=== PATIENT | female | born 1975 | race Caucasian/White ===

== ENCOUNTER 2016-11-16 18:34 | Emergency (ER) | payer OTHER ==
[2016-11-16 18:43] VITALS: BP 109/71; PULSE 68; TEMP 98; BMI 18.2
--- NOTE | 2016-11-16 20:04 | PDOC ---
History of Present Illness <Shekhar Judd - Last Filed: 11/16/16 20:04> - General History Source: Patient Exam Limitations: No Limitations - History of Present Illness Initial Comments: 11/16/16 20:20 The patient is a 40 year old female with past medical history of recent bilateral breast augmentation (11/03/16) who presents to the ED for bleeding from the surgical wound. Patient is s/p bilateral breast augmentation on November 03. States she had her procedure done in [place] with no complications. Patient reports last night was the first night she removed her surgical tapes and noted some blood oozing from the end of the right breast surgical wound. Denies swelling, bruising, or discharge from the area. She contacted her surgeon where she was told to come into the ER. Patient denies fever, chills, or diaphoresis. The patient denies cough, SOB, chest pain, and palpitations. The patient denies abdominal pain, nausea, vomiting, and diarrhea. Allergies: NKDA Social History: No alcohol, tobacco, or drug use reported. Past Surgical History: s/p bilateral; breast augmentation (11/03/16) PCP: Dr. Bobby Woods <Evangelina Jorge - Last Filed: 11/16/16 20:21> - General Chief Complaint: Wound Stated Complaint: FEMALE ISSUE Time Seen by Provider: 11/16/16 19:55 Past History - Psycho/Social/Smoking Cessation Hx Anxiety: No Suicidal Ideation: No Smoking History: Never smoked Have you smoked in the past 12 months: No Information on smoking cessation initiated: No Hx Alcohol Use: No Drug/Substance Use Hx: No Substance Use Type: None <Shekhar Judd - Last Filed: 11/16/16 20:04> <Evangelina Jorge - Last Filed: 11/16/16 20:21> - Past Medical History Allergies/Adverse Reactions: Allergies Allergy/AdvReac Type Severity Reaction Status Date / Time No Known Allergies Allergy Verified 11/16/16 18:40 Home Medications: Ambulatory Orders Phenazopyridine HCl [Pyridium -] 200 mg PO ONCE #10 tablet 04/03/14 Sulfamethoxazole/Trimethoprim [Bactrim *Ds*] 1 each PO BID #6 tablet 04/03/14 Review of Systems - Review of Systems Able to Perform ROS?: Yes Comments:: 11/16/16 20:21 CONSTITUTIONAL: Absent: fever, no chills, no fatigue EYES: Absent: visual changes ENT: Absent: ear pain, no sore throat CARDIOVASCULAR: Absent: chest pain, no palpitations RESPIRATORY: Absent: cough, no SOB GI: Absent: abdominal pain, no nausea, no vomiting, no constipation, no diarrhea GENITOURINARY: Absent: dysuria, no frequency, no hematuria MUSCULOSKELETAL: Absent: back pain, no arthralgia, no myalgia SKIN: +slight bleeding from the right breast surgical wound Absent: rash NEURO: Absent: headache <Evangelina Jorge - Last Filed: 11/16/16 20:21> *Physical Exam - Vital Signs Last Vital Signs Temp Pulse Resp BP Pulse Ox 98 F 68 18 109/71 100 11/16/16 18:40 11/16/16 18:40 11/16/16 18:40 11/16/16 18:40 11/16/16 18:40 <Shekhar Judd - Last Filed: 11/16/16 20:04> - Vital Signs Last Vital Signs Temp Pulse Resp BP Pulse Ox 98 F 68 18 109/71 100 11/16/16 18:40 11/16/16 18:40 11/16/16 18:40 11/16/16 18:40 11/16/16 18:40 - Physical Exam Comments: 11/16/16 20:21 GENERAL: Well-appearing, well-nourished. No apparent distress. HEENT: Normocephalic, atraumatic. PERRL, EOM intact. CARDIOVASCULAR: Normal S1, S2. Regular rate and rhythm. PULMONARY: Clear to auscultation bilaterally. ABDOMEN: Soft, non-distended, non-tender. EXTREMITIES: Normal ROM in all four extremities. No gross deformities. SKIN: Warm, dry. No rash. Well healing wound under right breast. Small area of ecchymosis. Wound is nontender. No active bleeding. NEUROLOGICAL: No focal neurological deficits. <Evangelina Jorge - Last Filed: 11/16/16 20:21> Medical Decision Making - Medical Decision Making 11/16/16 20:04 Dr. Judd: The scribe's documentation has been prepared under my direction and personally reviewed by me in its entirery. I confirm that the note above accurately reflects all work, treatment, procedures, and medical decision making performed by me. <Shekhar Judd - Last Filed: 11/16/16 20:04> *DC/Admit/Observation/Transfer - Discharge Dispostion Admit: No <Shekhar Judd - Last Filed: 11/16/16 20:04> - Attestations Scribe Attestion: 11/16/16 20:21 Documentation prepared by Evangelina Jorge, acting as medical reimbursement manager for Shekhar Judd MD/DO. <Evnagelina Jorge - Last Filed: 11/16/16 20:21> Diagnosis at time of Disposition: Encounter for wound care - Discharge Dispostion Disposition: HOME Condition at time of disposition: Stable - Referrals Referrals: Bobby Woods [Primary Care Provider] - Colin Pascual MD [Staff Physician] - - Patient Instructions Printed Discharge Instructions: How to Care for a Surgical Wound Additional Instructions: continue taking medication as discussed. Keep wound clean and dry. Return if any problems.
== END 2016-11-16 20:21 | disposition home or self-care (01) ==
LOC: JERFT 18:34 → JER 18:34
DX: L76.22 Postprocedural hemorrhage of skin and subcutaneous tissue following other procedure (principal); Y83.4 Other reconstructive surgery as the cause of abnormal reaction of the patient, or of later complication, without mention of misadventure at the time of the procedure
CPT/HCPCS: 99281-25